=== PATIENT | male | born 1985 | race Caucasian/White ===

== ENCOUNTER 2019-09-16 17:20 | Emergency (ER) | payer OTHER ==
[2019-09-16] MEDS ORDERED: Bacitracin Oint 1 GM U/D Packet TOP ONE (17:44)
--- NOTE | 2019-09-16 17:45 | EDM.PDOC ---
ED HPI GENERAL MEDICAL PROBLEM - General Chief Complaint: Laceration Stated Complaint: CUT ON LEFT FOOT Time Seen by Provider: 09/16/19 17:44 Source of Information: Reports: Patient - History of Present Illness INITIAL COMMENTS - FREE TEXT/NARRATIVE: 34 year old male presents to [place] [facility] due to laceration while visiting the area with family. He was unpacking the vehicle when he caught his left great toe on the uneven chipped cement curb. Patient was wearing flip flops at the time of injury. Injured occurred about 1 hour ago. Patient had wound bandage by [id number] whom is a nurse. Patient does not recall last tetanus shot. Patient has not taken any OTC medications for pain. Left Foot Pain Score (Numeric/FACES): 3 - Related Data Allergies Allergy/AdvReac Type Severity Reaction Status Date / Time No Known Allergies Allergy Verified 09/16/19 17:45 Home Meds: Home Meds Blood Pressure Pill 12.5 mg PO DAILY 09/16/19 [History] ED ROS GENERAL - Review of Systems Review Of Systems: Comprehensive ROS is negative, except as noted in HPI. ED EXAM, SKIN/RASH Exam: See Below Exam Limited By: No Limitations General Appearance: Alert, WD/WN, Moderate Distress (due to great toe pain and injury ) ED SKIN PROCEDURES - Laceration/Wound Repair Left Toe - Great Appearance: Subcutaneous, Mildly Contaminated Distal NVT: Neuro & Vascular Intact Anesthetic Type: Digital Local Anesthesia - Lidocaine (Xylocaine): 1% Plain Skin Prep: Chlorhexidine (Hibiciens) (with saline for wound prep), Providone- Iodine (Betadine) (before digit block), Saline Saline Irrigation (cc's): 250 Exploration/Debridement/Repair: Moderate Debridement (large callous flap on plantar surface or great toe removed. Skin tear note below with no laceration to repair. Medial and dorsal abrasions debrided of non viable tissue. ) Sterile Dressing Applied: Nurse Tetanus Status Addressed: Yes (updated) Course - Vital Signs Last Recorded V/S: Last Vital Signs Temp 37.1 C 09/16/19 17:44 Pulse 116 H 09/16/19 17:44 Resp 17 09/16/19 17:44 BP 149/100 H 09/16/19 17:44 Pulse Ox 97 09/16/19 17:44 - Orders/Labs/Meds Orders: Active Orders 24 hr Category Date Time Status Vaccines to be Administered [RC] PER UNIT ROUTINE Care 09/16/19 17:55 Active Vital Signs [RC] PER UNIT ROUTINE Care 09/16/19 17:44 Active Meds: Medications Discontinued Medications Generic Name Dose Route Start Last Admin Trade Name Teresa PRN Reason Stop Dose Admin Bacitracin 1 dose 09/16/19 17:44 09/16/19 17:59 Bacitracin Oint 1 Gm TOP 09/16/19 17:45 1 dose ONETIME ONE Administration Diphtheria/Tetanus/Acell Pertussis 0.5 ml 09/16/19 17:55 09/16/19 18:00 Adacel IM 09/16/19 17:56 0.5 ml .ONCE ONE Administration Lidocaine HCl 5 ml 09/16/19 17:44 09/16/19 17:59 Xylocaine-Mpf 1% INJECT 09/16/19 17:45 5 ml ONETIME ONE Administration Departure - Departure Time of Disposition: 18:52 Disposition: Home, Self-Care 01 Clinical Impression: Injury of toe on left foot, Tetanus-diphtheria vaccination administered at current visit - Discharge Information Instructions: Wound Care, Adult Referrals: PCP,None [Primary Care Provider] - Forms: ED Department Discharge Additional Instructions: 1. Cleanse wound with warm soap and water or consider soaking in epson salt water every am and pm. 2. Topical antibiotic ointment every am and pm after gentle washing. 3. Tetanus Update during ER visit and added to [place] Immunization record. 4. Watch for secondary wound infection, if infection concerns increased wound care and contact PCP to see if oral antibiotic necessary based on symptoms and appearance. 5. Wound check in 3-5 days if infection concerns. Sepsis Event Note (ED) - Focused Exam Vital Signs: Vital Signs Temp Pulse Resp BP Pulse Ox 09/16/19 17:44 37.1 C 116 H 17 149/100 H 97 09/16/19 17:39 37.1 C 116 H 17 149/100 H 97 - My Orders Last 24 Hours: My Active Orders 09/16/19 17:44 Vital Signs [RC] PER UNIT ROUTINE 09/16/19 17:55 Vaccines to be Administered [RC] PER UNIT ROUTINE - Assessment/Plan Last 24 Hours: My Active Orders 09/16/19 17:44 Vital Signs [RC] PER UNIT ROUTINE 06/20/20 17:55 Vaccines to be Administered [RC] PER UNIT ROUTINE
[2019-09-16] MEDS ORDERED: Diphtheria,Pertussis(Acell),Tetanus Vaccine 0.5 ML SDV IM ONE (17:55)
== END 2019-09-16 19:00 | disposition home or self-care (01) ==
LOC: EDSEX 17:20 → JP.ED 17:20
DX: S99.922A Unspecified injury of left foot, initial encounter (principal); Z23 Encounter for immunization; Z79.899 Other long term (current) drug therapy; W26.9XXA Contact with unspecified sharp object(s), initial encounter
CPT/HCPCS: 64450; 90471; 90715; 99282; J2001